=== PATIENT | male | born 1970 | race Caucasian/White ===

== ENCOUNTER → 2016-04-08 | Day surgery (SDC) | payer BC ==
[2016-03-09 09:34] VITALS: BMI 26.0
[~2016-04-08] VITALS: Ht 188 cm; Wt 90.9 kg
[~2016-04-08] MED LIST: LIDOCAINE HCL 2% 2 ML VIAL (20MG/ML) ONE; MIDAZOLAM HCL 1 MG/ML 2ML VIAL ONE; OMEP40CA36 PO; PROPOFOL IV EMULSION 10 MG/ML 20 ML VIAL IV ONE
[2016-04-08 13:06] VITALS: Ht 188 cm; Wt 90.9 kg
[2016-04-08 13:11] VITALS: TEMP 36.6
--- NOTE | 2016-04-08 14:03 | Endo History and Physical ---
History & Physical Date of Service: Apr 08, 2016. Chief Complaint: ACID REFLUX AND COUGH X 2 YEARS Referring Physician: DR VITALE History of Present Illness For EGD with Ca Past Surgical History Hx Cardiac Surgery: No Hx Internal Defibrillator: No Hx Pacemaker: No Hx Abdominal Surgery: No Hx of Implantable Prosthesis: No Hx Post-Op Nausea and Vomiting: No Hx Cancer Surgery: No Hx Thoracic Surgery: No Hx Orthopedic: Yes (RT ANKLE SX, RT RCR, RT KNEE ARTHROSCOPY) Hx Urinary Tract Surgery: No Family History IBD Social History Smoking Status: Never Smoker Hx Substance Use: No Hx Alcohol Use: Yes (OCCASSIONALLY) Allergies Coded Allergies: NO KNOWN DRUG ALLERGIES (Verified Allergy, Unknown, ., 04/08/16) Current Medications Reported Home Medications Medications Dose Route/Sig Max Daily Dose Days Date Category Dose Instructions Prilosec (Omeprazole) 40 Mg Cap 40 Mg PO BID 03/09/16 Reported CURRENLTY TOLD TO HOLD Vital Signs Weight (Kilograms): 90.91 Height (Feet): 6 Height (Inches): 2 Date Time Temp Pulse Resp B/P Pulse Ox O2 Delivery O2 Flow Rate FiO2 04/08/16 13:11 36.6 59 18 133/74 100 Room Air Physical Exam General Appearance: WD/WN Respiratory/Chest: Respiratory effort: no dyspnea Cardiovascular: Heart Auscultation: RRR Abdomen: Inspection & Palpation: soft Assessment and Plan Cough for EGD with Ca
--- NOTE | 2016-04-08 14:30 | Discharge Instructions ---
Endoscopy Patient Instructions Date / Procedure(s) Performed Apr 08, 2016. EGD Allergy Information Coded Allergies: NO KNOWN DRUG ALLERGIES (Verified Allergy, Unknown, ., 04/08/16) Discharge Date / Findings Apr 08, 2016. gastric polyps, Ca placement Medication Instructions Stopped Medication(s): STOP OMEOROZOLE Restart Stopped Medication(s): hold acid reducing meds for 2 days Reported Home Medications Medications Dose Route/Sig Max Daily Dose Days Date Category Dose Instructions Prilosec (Omeprazole) 40 Mg Cap 40 Mg PO BID 03/09/16 Reported CURRENLTY TOLD TO HOLD Provider Instructions Activity Restrictions - No exercising or heavy lifting for 24 hours. - Do not drink alcohol the day of the procedure. - Do not drive a car or operate machinery until the day after the procedure. - Do not make any important decisions or sign important papers in 24 hours after the procedure. Following Day: - Return to full activity which may include returning to work/school. Diet Start your diet with liquids and light foods (jello, soup, juice, toast). Then eat your usual diet if not nauseated. Treatment For Common After Affects For mild abdominal pain, bloating, or excessive gas: - Rest - Eat lightly - Lie on right side Follow-Up Information Follow-up with DR VITALE as scheduled Anesthesia Information What You Should Know You have had a procedure that required some medicine to reduce anxiety and discomfort. This treatment is called moderate sedation. After receiving the treatment, you may be sleepy, but you will be able to breathe on your own. The effects of the treatment may last for several hours. Follow these instructions along with Activity/Diet recommendations noted above: * Do NOT do anything where dizziness or clumsiness would be dangerous. * Rest quietly at home today, then you can be up and about tomorrow. * Have a responsible person stay with you the rest of today. * You may have had an I.V. today. If so, you may take the dressing off later today. Recommendations Call your doctor if: * Trouble breathing * Continuous vomiting for more than 24 hours * Temperature above 101 degrees * Severe abdominal pain or bloating * Pain not relieved by pain medicine ordered * There is increased drainage or redness from any incision * A large amount of rectal bleeding greater than 2-3 tablespoons. (If you had a polyp/s removed or have hemorrhoids, a small amount of blood - from the rectum is to be expected.) * You have any unanswered questions or concerns. IN THE EVENT OF A SERIOUS EMERGENCY, GO TO THE NEAREST EMERGENCY ROOM Your discharge instructions were prepared by provider Warren Howe. Patient Instructions Signature Page Damian Schaffer Patient (or Guardian) Signature/Date: I have read and understand the instructions given to me by my caregivers. Caregiver/RN/Doctor Signature/Date: The above-named patient and/or guardian has received patient instructions on this date. + Original Patient Signature Page (only) stays with chart. Please make copy for patient.
--- NOTE | 2016-04-08 14:35 | GI REPORT ---
Procedure Date: 04/08/2016 2:00 PM Procedure: Upper GI endoscopy Indications: Chronic cough Medicines: Midazolam 2 mg IV, Propofol total dose 300 mg IV, Lidocaine 40 mg IV Complications: No immediate complications. Estimated Blood Loss: Estimated blood loss: none. Procedure: Pre-Anesthesia Assessment: - Prior to the procedure, a History and Physical was performed, and patient medications, allergies and sensitivities were reviewed. The patient's tolerance of previous anesthesia was reviewed. - The risks and benefits of the procedure and the sedation options and risks were discussed with the patient. All questions were answered and informed consent was obtained. After obtaining informed consent, the endoscope was passed under direct vision. Throughout the procedure, the patient's blood pressure, pulse, and oxygen saturations were monitored continuously. The scope was introduced through the mouth, and advanced to the second part of duodenum. The upper GI endoscopy was accomplished without difficulty. The patient tolerated the procedure well. Findings: The examined esophagus was normal. The SARAH capsule with delivery system was introduced through the mouth and advanced into the esophagus, such that the SARAH pH capsule was positioned 34 cm from the incisors, which was 6 cm proximal to the EG junction. The SARAH pH capsule was then deployed and attached to the esophageal mucosa. The delivery system was then withdrawn. Endoscopy was utilized for probe placement and diagnostic evaluation. Estimated blood loss was minimal. Multiple 5 mm semi-sessile polyps with no bleeding and no stigmata of recent bleeding were found in the gastric body. The examined duodenum was normal. Impression: - Normal esophagus. - Multiple gastric polyps. - Normal examined duodenum. - The SARAH pH capsule was deployed. - No specimens collected. Recommendation: - Discharge patient to home (ambulatory). - Return to primary care physician PRN. Warren Howe M.D. Warren Howe MD 04/08/2016 2:35:37 PM This report has been signed electronically. Note Initiated On: 04/08/2016 2:00 PM I attest to the content of the Intraoperative Record and orders documented therein, exceptions below
--- NOTE | 2016-04-08 14:56 | Anesthesiology Progress Note ---
Anesthesia Post Op Note Date & Time Apr 08, 2016 at 14:56 Vital Signs Pain Intensity: 0 Vital Signs Past 12 Hours Date Time Temp Pulse Resp B/P Pulse Ox O2 Delivery O2 Flow Rate FiO2 04/08/16 14:33 59 18 130/64 96 Room Air 04/08/16 13:11 36.6 59 18 133/74 100 Room Air Notes Mental Status: alert / awake / arousable, participated in evaluation Pt Amnestic to Procedure: Yes Nausea / Vomiting: adequately controlled Pain: adequately controlled Airway Patency, RR, SpO2: stable & adequate BP & HR: stable & adequate Hydration State: stable & adequate Anesthetic Complications: no major complications apparent
[2016-04-08 15:03] VITALS: BP 129/68; PULSE 53; O2SAT 100
== END | disposition home or self-care (01) ==
LOC: C.GI 12:55
PROVIDERS: ATTEND Internal Medicine Gastroenterology
DX: R05 Cough (principal); K31.7 Polyp of stomach and duodenum; K21.9 Gastro-esophageal reflux disease without esophagitis; Z83.79 Family history of other diseases of the digestive system

== ENCOUNTER → 2017-07-06 | Outpatient (CLI) | payer OTHER ==
[~2017-07-06] MED LIST changes: -LIDOCAINE HCL 2% 2 ML VIAL (20MG/ML) ONE; -MIDAZOLAM HCL 1 MG/ML 2ML VIAL ONE; -PROPOFOL IV EMULSION 10 MG/ML 20 ML VIAL IV ONE
--- NOTE | 2017-07-06 08:48 | DIAGNOSTIC IMAGING REPORT ---
L-SPINE MIN 4 VIEWS ROUTINE CLINICAL HISTORY: 46 years-old Male presenting with M54.5 LOW BACK PAIN for one year, no history of injury. TECHNIQUE: Frontal, bilateral oblique, lateral, and coned in lateral views of the lumbar spine were obtained. COMPARISON: None. FINDINGS: No scoliosis. Straightening of normal lumbar lordosis. Vertebral bodies maintain normal height and alignment. Intervertebral disc heights preserved. No advanced degenerative change. No radiographic evidence of osseous neural foraminal narrowing. No compression deformity or subluxation. No significant facet arthropathy. No pars defect. Moderate stool burden primarily in the right and transverse colon. A calcification projects over the left renal pelvis. IMPRESSION: 1. No radiographic evidence of acute osseous injury or advanced degenerative change. 2. Moderate stool burden suggest constipation. 3. Punctate calcification projecting over the left renal pelvis may either represent a left renal calculus versus dense stool. Electronically signed by: Neri Rubio M.D. 07/06/2017 8:47 AM Dictated Date/Time: 07/06/2017 8:45 AM
== END | disposition home or self-care (01) ==
LOC: C.RAD 08:06
PROVIDERS: ATTEND Family Medicine
DX: M54.5 Low back pain (principal); Z91.048 Other nonmedicinal substance allergy status